=== PATIENT | female | born 1990 | race Two or more races ===

== ENCOUNTER 2019-04-11 08:25 | Inpatient (IN) | payer MEDICAID ==
[~2019-04-11] VITALS: Ht 152.4 cm; Wt 81.6 kg
[2019-04-11] MEDS ORDERED: LACTATED RINGERS 1,000 ML IV SCH (09:05)
[2019-04-11] MEDS ORDERED: DEXT 5%/LR + PITOCIN 20UNITS/L 1,000 ML IV SCH (09:05)
[2019-04-11] MEDS ORDERED: CITRIC ACID/SODIUM CITRATE SOLN 30ML UDC PO ONE (09:15)
[2019-04-11] MEDS ORDERED: OXYTOCIN 10 UNITS/ML 1ML ONE (09:31)
[2019-04-11] MEDS ORDERED: GLYCOPYRROLATE 0.2 MG/ML 2ML VIAL ONE (09:31)
[2019-04-11] MEDS ORDERED: ONDANSETRON HCL 4MG/2ML INJ ONE (09:31)
[2019-04-11] MEDS ORDERED: CEFAZOLIN SODIUM 1000MG/VIAL ONE (09:31)
[2019-04-11] MEDS ORDERED: MORPHINE SULFATE/PF 1MG/ML 10ML AMP ONE (09:31)
[2019-04-11] MEDS ORDERED: EPHEDRINE SULFATE 50MG/ML VIAL ONE (09:31)
[2019-04-11] MEDS ORDERED: FENTANYL CITRATE/PF 50MCG/ML 2ML VIAL ONE (09:32)
[2019-04-11 09:43] LABS: BASOPHILS % 0.6 % (0.0-2.0); EOSINOPHILS % 0.6 % (0.0-5.0); HEMATOCRIT. 32.4 % (36.0-48.0); HEMOGLOBIN. 11.1 g/dL (12.0-16.0); MEAN CORPUSCULAR HEMOGLOBIN 28.9 pg (28.0-32.0); MEAN CORPUSCULAR VOLUME 84.7 fL (81.0-99.0); MEAN PLATELET VOLUME 8.6 fl (7.4-10.4); MONOCYTES % 8.1 % (2.0-8.0); NEUTROPHILS % 70.7 % (40.0-76.0); PLATELET 230 x1000/uL (130-400); RED BLOOD CELL COUNT 3.82 mill/uL (4.2-5.4)
[2019-04-11 09:47] LABS: CLARITY URINE CLEAR (CLEAR); COLOR URINE YELLOW (YELLOW); KETONES URINE NEGATIVE (NEGATIVE); LEUKOCYTE ESTERASE URINE TRACE (NEGATIVE); NITRITE URINE NEGATIVE (NEGATIVE); OCCULT BLOOD URINE NEGATIVE (NEGATIVE); PROTEIN URINE NEGATIVE (NEGATIVE); SPECIFIC GRAVITY URINE 1.013 (1.005-1.030); UROBILINOGEN URINE 0.2 E.U./dL (0.2-1.0)
[2019-04-11 09:54] LABS: INR 0.9; PARTIAL THROMBOPLASTIN TIME 27.1 sec (23.4-31.0); PROTHROMBIN TIME 9.3 sec (9.6-11.0)
[2019-04-11] MEDS ORDERED: KETOROLAC 60MG/2ML VIAL IM ONE (10:51)
[2019-04-11] MEDS ORDERED: METOCLOPRAMIDE HCL 10MG/2ML VIAL ONE (10:51)
[2019-04-11] MEDS ORDERED: DIPHENHYDRAMINE 50MG/ML VIAL ONE (10:51)
[2019-04-11 10:55] LABS: *AMPHETAMINES SCREEN URINE NEGATIVE (NEGATIVE)
[2019-04-11 10:56] LABS: *BARBITURATES SCREEN URINE NEGATIVE (NEGATIVE); *COCAINE SCREEN URINE NEGATIVE (NEGATIVE); METHADONE URINE SCREEN NEGATIVE (NEGATIVE); OPIATES URINE SCREEN NEGATIVE (NEGATIVE)
[2019-04-11 10:57] LABS: CANNABINOID URINE SCREEN NEGATIVE (NEGATIVE)
[2019-04-11 10:58] LABS: *BENZODIAZEPINES SCREEN URINE NEGATIVE (NEGATIVE)
[2019-04-11 10:59] LABS: PHENCYCLIDINE URINE SCREEN NEGATIVE (NEGATIVE)
[2019-04-11] MEDS ORDERED: RHO(D) IMMUNE GLOBULIN 300 MCG/SYR IM PRN (11:30)
[2019-04-11] MEDS ORDERED: BISACODYL 10MG SUPP PR PRN (11:30)
[2019-04-11] MEDS ORDERED: DIPHENHYDRAMINE 25MG CAPSULE PO PRN (11:30)
[2019-04-11] MEDS ORDERED: HEMORRHOIDAL SUPP PR PRN (11:30)
[2019-04-11] MEDS ORDERED: GLYCERIN/WITCH HAZEL LEAF MEDICATED PAD TOP PRN (11:30)
[2019-04-11] MEDS ORDERED: BENZOCAINE/LANOLIN/ALOE VERA SPRAY TOP PRN (11:30)
[2019-04-11] MEDS ORDERED: ACETAMINOPHEN WITH CODEINE 300/30MG TABLET PO PRN (11:30)
[2019-04-11] MEDS ORDERED: IBUPROFEN 400MG TABLET PO PRN (11:30)
[2019-04-11] MEDS ORDERED: DIPHENHYDRAMINE 50MG/ML VIAL IV PRN (11:45)
[2019-04-11] MEDS ORDERED: NALOXONE HCL 0.4 MG/ML 1ML VIAL IV PRN (11:45)
[2019-04-11] MEDS ORDERED: BUTORPHANOL TARTRATE 2 MG/ML VIAL IV PRN (11:45)
[2019-04-11 11:49] LABS: HEPATITIS B SURFACE ANTIGEN NEGATIVE
[2019-04-11] MEDS ORDERED: KETOROLAC 30MG/ML VIAL IV SCH (12:00)
[2019-04-11] MEDS: DEXT 5%/LR + PITOCIN 20UNITS/L 1,000 ML IV SCH ×2 (12:34→21:30)
[2019-04-11 13:15] VITALS: BP 107/58
[2019-04-11 13:58] VITALS: BP 106/54
[2019-04-11 15:00] VITALS: BP 100/55
[2019-04-11 17:01] VITALS: BP 107/61
[2019-04-11] MEDS: MAGNESIUM/ALUMINUM HYDROXIDE/SIMETHICONE 30ML UDC PO SCH (17:30)
[2019-04-11] MEDS: SIMETHICONE 80MG TABLET CHEW PO SCH (21:00)
[2019-04-11 22:00] VITALS: BP 111/58
[2019-04-12 05:15] VITALS: BP 109/60
[2019-04-12 06:51] LABS: BASOPHILS % 0.2 % (0.0-2.0); EOSINOPHILS % 0.6 % (0.0-5.0); HEMATOCRIT. 28.3 % (36.0-48.0); HEMOGLOBIN. 9.6 g/dL (12.0-16.0); MEAN CORPUSCULAR HEMOGLOBIN 28.9 pg (28.0-32.0); MEAN PLATELET VOLUME 8.3 fl (7.4-10.4); MONOCYTES % 7.4 % (2.0-8.0); NEUTROPHILS % 77.8 % (40.0-76.0); PLATELET 182 x1000/uL (130-400); RED BLOOD CELL COUNT 3.33 mill/uL (4.2-5.4); RED CELL DISTRIBUTION WIDTH 13.9 % (11.6-14.6)
[2019-04-12] MEDS: DEXT 5%/LR + PITOCIN 20UNITS/L 1,000 ML IV SCH (06:53)
[2019-04-12 07:30] VITALS: BP 98/56
[2019-04-12] MEDS: MAGNESIUM/ALUMINUM HYDROXIDE/SIMETHICONE 30ML UDC PO SCH ×3 (08:22→21:00)
[2019-04-12] MEDS: FERROUS SULFATE 325MG TABLET PO SCH ×2 (08:23→13:25)
[2019-04-12] MEDS: SIMETHICONE 80MG TABLET CHEW PO SCH ×6 (08:24→21:46)
[2019-04-12 15:30] VITALS: BP 111/62
[2019-04-12] MEDS: ACETAMINOPHEN WITH CODEINE 300/30MG TABLET PO PRN (16:17)
[2019-04-12 19:56] VITALS: BP 102/54
[2019-04-13] MEDS: ACETAMINOPHEN WITH CODEINE 300/30MG TABLET PO PRN ×2 (01:04→15:47)
[2019-04-13 04:08] VITALS: BP 115/60
[2019-04-13 07:55] VITALS: BP 103/57
[2019-04-13] MEDS: MAGNESIUM/ALUMINUM HYDROXIDE/SIMETHICONE 30ML UDC PO SCH ×4 (08:32→21:24)
[2019-04-13] MEDS: SIMETHICONE 80MG TABLET CHEW PO SCH ×4 (08:32→21:24)
[2019-04-13] MEDS: FERROUS SULFATE 325MG TABLET PO SCH ×3 (08:32→17:52)
[2019-04-13 15:50] VITALS: BP 118/57
[2019-04-13 19:30] VITALS: BP 106/60
[2019-04-13] MEDS ORDERED: IBUP-2030 MT (20:35)
[2019-04-14 04:00] VITALS: BP 102/61
[2019-04-14 07:45] VITALS: BP 105/61
[2019-04-14] MEDS: FERROUS SULFATE 325MG TABLET PO SCH (08:11)
[2019-04-14] MEDS: SIMETHICONE 80MG TABLET CHEW PO SCH (08:11)
== END 2019-04-14 12:30 | disposition home or self-care (01) | DRG 540 ==
LOC: 8 EST LDRP 08:25 → 8EST 13:06
PROVIDERS: ADMIT Obstetrics & Gynecology; ATTEND Obstetrics & Gynecology
PROC: 10D00Z1 Extraction of Products of Conception, Low, Open Approach (ICD-10-PCS; principal; 2019-04-11)
DX: O26.62 Liver and biliary tract disorders in childbirth (principal); K83.1 Obstruction of bile duct; Z37.0 Single live birth; Z3A.36 36 weeks gestation of pregnancy; O34.219 Maternal care for unspecified type scar from previous cesarean delivery; O99.02 Anemia complicating childbirth; D62 Acute posthemorrhagic anemia
CPT/HCPCS: 36415; 80305; 81003; 86592; 86703; 86762; 86850; 86900; 86920; 87340; 88307; 99281; J0690; J1200; J1885; J2274; J2405; J2590; J2765; J3010; J3490; A4315